=== PATIENT | male | born 1975 ===

== ENCOUNTER 2016-06-30 23:44 | Emergency (ER) | payer SELFPAY ==
[~2016-06-30] VITALS: Ht 175.3 cm; Wt 99.8 kg
[2016-07-01 00:15] VITALS: BP 155/99
[2016-07-01] MEDS ORDERED: Dicyclomine HCl 10mg/5ml oral soln ORAL ONE (00:30)
[2016-07-01] MEDS ORDERED: Famotidine 20 MG/ 2ML VIAL IVP ONE (01:00)
[2016-07-01] MEDS ORDERED: Morphine Sulfate 4mg/ml Inj IVP ONE ×2 (01:00→02:00)
[2016-07-01 01:16] LABS: BASOPHILS % (AUTO) 0.9 % (0.0-2.0); EOSINOPHILS % (AUTO) 2.8 % (0.0-3.0); LYMPHOCYTES % (AUTO) 21.8 % (20.0-45.0); MEAN CORPUSCULAR HEMOGLOBIN 31.2 PG (27.0-31.0); MEAN CORPUSCULAR HGB CONC 33.3 G/DL (32.0-36.0); MEAN CORPUSCULAR VOLUME 94 FL (80-99); MEAN PLATELET VOLUME 8.6 FL (6.5-10.1); MONOCYTES % (AUTO) 9.4 % (1.0-10.0); NEUTROPHILS % (AUTO) 65.1 % (45.0-75.0); PLATELET COUNT 270 K/UL (150-450); RED BLOOD COUNT 5.26 M/UL (4.70-6.10); RED CELL DISTRIBUTION WIDTH 12.1 % (11.6-14.8); WHITE BLOOD COUNT 7.9 K/UL (4.8-10.8)
[2016-07-01 01:26] LABS: APPEARANCE,URINE CLEAR; KETONES,URINE NEGATIVE (NEGATIVE); LEUKOCYTE ESTERASE ,URINE NEGATIVE (NEGATIVE); NITRITE,URINE NEGATIVE (NEGATIVE); PH,URINE 6 (4.5-8.0); PROTEIN,URINE NEGATIVE (NEGATIVE); UROBILINOGEN,URINE NORMAL MG/DL (0.0-1.0)
[2016-07-01 01:30] LABS: ALANINE AMINOTRANSFERASE 23 U/L (3-41); ALBUMIN/GLOBULIN RATIO 1.3 (1.0-2.7); ANION GAP 14 (5-15); ASPARTATE AMINO TRANSFERASE 20 U/L (5-40); CALCIUM 8.8 mg/dL (8.6-10.2); CARBON DIOXIDE 24 mEQ/L (20-30); CHLORIDE 104 mEQ/L (98-107); CREATININE 1.1 mg/dL (0.7-1.2); GLOMERULAR FILTRATION RATE > 60 mL/min (>60); HEMOLYSIS 9; LIPASE 76 U/L (< 60); POTASSIUM 4.4 mEQ/L (3.4-4.9); SODIUM 142 mEQ/L (135-145)
[2016-07-01 01:32] LABS: TROPONIN I < 0.30 ng/mL (<=0.30)
--- NOTE | 2016-07-01 01:52 | Emergency Room Report ---
History of Present Illness General Chief Complaint: Abdominal Pain Source: Patient Present Illness HPI Patient is a 41-year-old male presented after increased generalized abdominal pain as well as nausea. Patient reported having pain in a had periumbilical l region. Pain did not radiate. The patient was noted to have some nausea. He had not been vomiting. He denied any diarrhea. Patient reported having similar episodes previously. He denies recent black or bloody stools. Allergies: Coded Allergies: No Known Allergies (Unverified , 07/01/16) Patient History Past Medical History: see triage record Reviewed Nursing Documentation: PMH: Agreed, PSxH: Agreed Nursing Documentation-PM Past Medical History: No Stated History Review of Systems All Other Systems: negative except mentioned in HPI Physical Exam Vital Signs Date Time Temp Pulse Resp B/P Pulse Ox O2 Delivery O2 Flow Rate FiO2 07/01/16 00:05 97.9 73 18 179/116 99 Room Air Sp02 EP Interpretation: reviewed, normal General Appearance: normal inspection, well appearing, no apparent distress, alert, GCS 15, non-toxic Head: atraumatic ENT: normal ENT inspection, hearing grossly normal, normal voice Neck: normal inspection, full range of motion, supple, no bony tend Respiratory: normal inspection, lungs clear, normal breath sounds, no respiratory distress, no retraction, no wheezing Cardiovascular #1: regular rate, rhythm, no edema Gastrointestinal: normal inspection, normal bowel sounds, non tender, soft, no guarding, no hernia Genitourinary: no CVA tenderness Musculoskeletal: normal inspection, back normal, normal range of motion Neurologic: normal inspection, alert, responsive, speech normal Psychiatric: normal inspection, judgement/insight normal, mood/affect normal Skin: normal inspection, normal color, no rash Medical Decision Making Diagnostic Impression: Primary Impression: Abdominal pain Additional Impression: Cholelithiasis ER Course Patient 41-year-old male presented for increased abdominal pain. Differential diagnoses included ischemic bowel, appendicitis, perforated viscus, abdominal aortic aneurysm, inferior myocardial infarction, viral gastroenteritis. CT abdomen pelvis read by radiology showed cholelithiasis with gallbladder wall thickening and mild pericholecystic edema. Because of complexity of patient's case laboratory testing and imaging studies were ordered.Patient given IV nausea medication as well as pain medication. Laboratory testing was unremarkable. The patient was offered admission and he declined stating he would seek outpatient care. The patient is advised to follow up with primary care doctor in 1-2 days. Patient is advised to return if any worsening condition, persistent vomiting or fever or if any changes in status that are concerning. Labs Test 07/01/16 01:00 White Blood Count 7.9 K/UL (4.8-10.8) Red Blood Count 5.26 M/UL (4.70-6.10) Hemoglobin 16.4 G/DL (14.2-18.0) Hematocrit 49.4 % (42.0-52.0) Mean Corpuscular Volume 94 FL (80-99) Mean Corpuscular Hemoglobin 31.2 PG (27.0-31.0) Mean Corpuscular Hemoglobin Concent 33.3 G/DL (32.0-36.0) Red Cell Distribution Width 12.1 % (11.6-14.8) Platelet Count 270 K/UL (150-450) Mean Platelet Volume 8.6 FL (6.5-10.1) Neutrophils (%) (Auto) 65.1 % (45.0-75.0) Lymphocytes (%) (Auto) 21.8 % (20.0-45.0) Monocytes (%) (Auto) 9.4 % (1.0-10.0) Eosinophils (%) (Auto) 2.8 % (0.0-3.0) Basophils (%) (Auto) 0.9 % (0.0-2.0) Urine Color Pale yellow Urine Appearance Clear Urine pH 6 (4.5-8.0) Urine Specific [place] 1.025 (1.005-1.035) Urine Protein Negative (NEGATIVE) Urine Glucose (UA) Negative (NEGATIVE) Urine Ketones Negative (NEGATIVE) Urine Occult Blood Negative (NEGATIVE) Urine Nitrite Negative (NEGATIVE) Urine Bilirubin Negative (NEGATIVE) Urine Urobilinogen Normal MG/DL (0.0-1.0) Urine Leukocyte Esterase Negative (NEGATIVE) Sodium Level 142 mEQ/L (135-145) Potassium Level 4.4 mEQ/L (3.4-4.9) Chloride Level 104 mEQ/L (98-107) Carbon Dioxide Level 24 mEQ/L (20-30) Anion Gap 14 (5-15) Blood Urea Nitrogen 9 mg/dL (7-23) Creatinine 1.1 mg/dL (0.7-1.2) Estimat Glomerular Filtration Rate > 60 mL/min (>60) Glucose Level 111 mg/dL (74-106) Calcium Level 8.8 mg/dL (8.6-10.2) Total Bilirubin 0.5 mg/dL (0.0-1.2) Aspartate Amino Transf (AST/SGOT) 20 U/L (5-40) Alanine Aminotransferase (ALT/SGPT) 23 U/L (3-41) Alkaline Phosphatase 87 U/L (40-129) Troponin I < 0.30 ng/mL (<=0.30) Total Protein 7.0 g/dL (6.6-8.7) Albumin 4.0 g/dL (3.5-5.2) Globulin 3.0 g/dL Albumin/Globulin Ratio 1.3 (1.0-2.7) Lipase 76 U/L (< 60) Last Vital Signs Date Time Temp Pulse Resp B/P Pulse Ox O2 Delivery O2 Flow Rate FiO2 07/01/16 00:15 98.1 98 17 155/99 99 Room Air Status: unchanged Scripts Hydrocodone Bit/Acetaminophen 5-325* (NORCO 5-325*) 1 Each Tablet 1 TAB ORAL Q6H Y for For Pain, #14 TAB 0 Refills Prov: Dimitrios Ace 07/01/16 Cephalexin* (KEFLEX*) 500 Mg Capsule 500 MG ORAL Q6H, #28 CAP 0 Refills Prov: Dimitrios Ace 07/01/16 Dimitrios Ace Jul 01, 2016 01:52
[2016-07-01 02:15] VITALS: BP 150/98
[2016-07-01 04:30] VITALS: BP 147/97
[2016-07-01] MEDS ORDERED: KEFLEX500 MG ORAL (05:00)
[2016-07-01] MEDS ORDERED: NORCO 5-325 TA1 EACH ORAL (05:00)
[2016-07-01 05:20] VITALS: BP 145/95
--- NOTE | 2016-07-01 08:51 | Diagnostic Imaging Report ---
Indications: Epigastric abdominal pain Technique: Continuous helical CT imaging of the abdomen and pelvis was performed with automatic exposure control following administration of nonionic IV contrast only, on a Siemens sensation [address] scanner. Axial, coronal, sagittal images were reconstructed at 5 mm slice thickness. No oral contrast was administered per requesting physician's order, despite no contraindications listed in either submitted clinical data or tech note.. CTDI volume(s): 26 mGy Total DLP: 1444 mGy-cm Findings: Comparison: None Lack of oral contrast limits evaluation of gastrointestinal tract. Motion artifact degrades images, further limiting evaluation. Multiple loops of mildly to moderately distended small bowel in lower abdomen and pelvis with air-fluid levels, extends to the ileocecal junction, fecalization of terminal ileal contents. Remainder of tract nondilated. Multiple colonic diverticula.. Appendix unremarkable. No obvious mural thickening, adjacent stranding, extraluminal gas or fluid collections identified. Gallbladder contains 2.5 cm mildly hyperattenuating intraluminal mass and demonstrates diffuse mural thickening. 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 Bilateral renal collecting systems and ureters nondilated. Prominent prostate contains focal calcification and indents the urinary bladder outlet are otherwise unremarkable in appearance.. Liver, gallbladder, pancreas, spleen, adrenal glands, kidneys, seminal vesicles, vascular structures, retroperitoneum, mesentery, remainder visualized abdominopelvic anatomy unremarkable. Heart enlarged. Irregular pleural-based linear densities and dependent portions of both lung bases. Mild degenerative changes in lower lumbar spine. IMPRESSION: Gallstone with gallbladder wall thickening--rule out cholecystitis. Ultrasound correlation suggested. Small bowel findings as described, favor ileus over obstruction. May be reactive to above or represent intrinsic mild enteritis. This finding not described in [facility] preliminary report, minor discrepancy. No other evidence of acute abdominopelvic disease, with limitation as described. Subtle but potentially significant abnormalities the gastrointestinal tract may be missed. 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 Correlate clinically. Cardio megaly Pulmonary bibasal subsegmental atelectasis versus scarring Mild degenerative spondylosis This correlates with [facility] preliminary report. This correlates with [facility] preliminary report.
== END 2016-07-01 05:20 | disposition home or self-care (01) ==
LOC: EMR 07-01 00:30
DX: K80.20 Calculus of gallbladder without cholecystitis without obstruction (principal); K57.30 Diverticulosis of large intestine without perforation or abscess without bleeding; I51.7 Cardiomegaly; M47.816 Spondylosis without myelopathy or radiculopathy, lumbar region
CPT/HCPCS: 36415; 74177; 80053; 81003; 83690; 84484; 85025; 96374; 96375; 99284; J2270; J2405; Q9967; S0028